=== PATIENT | male | born 1995 | race African-American/Black ===

== ENCOUNTER → 2018-08-23 | Outpatient (CLI) | payer BC, OTHER ==
[~2018-08-23] VITALS: Ht 180.3 cm; Wt 99.8 kg
[~2018-08-23] MED LIST: CLARITHROMYCIN500 MG PO; CYCLOBENZAPRINE5 MG PO; NOHOMEMEDICATIONS; NORCO 5-325 TA1 EACH PO; TRAMADOL 50 MG50 MG PO
[2018-08-23 10:29] VITALS: BP 119/60
[2018-08-23 10:31] LABS: HEMATOCRIT 45.8 % (42.0-52.0); HEMOGLOBIN 15.5 gm/dL (14.0-18.0); MCH 28.9 pg (26.0-34.0); MCHC 33.8 g/dL (28.0-37.0); MCV 85.4 fL (80.0-100.0); RBC 5.37 mil/uL (4.50-6.00); RDW 13.2 % (10.5-14.5); WBC 6.2 thou/uL (4.0-11.0)
[2018-08-23 10:39] LABS: CALCIUM 9.6 mg/dL (8.5-10.1); CREATININE 1.2 mg/dL (0.7-1.3); POTASSIUM 3.9 mmol/L (3.5-5.1)
[2018-08-23 10:44] LABS: APTT 29.4 Seconds (24.5-32.8); PROTIME 10.8 Seconds (9.3-11.4)
[2018-08-23 12:20] LABS: CSF CLARITY CLEAR; CSF COLOR COLORLESS; CSF RBC 1 /mm3; CSF WBC 2 /mm3 (0-10); VOLUME 13.5 ml
[2018-08-23 12:31] LABS: CSF GLUCOSE 67 mg/dL (40-70); CSF PROTEIN 33 mg/dL (15-45)
--- NOTE | 2018-08-23 12:44 | NUR ---
PT. RECOVERED POST LP WITH NO DIFF. DISCHARGE INSTRUCTIONS GIVEN TO PT. AND SISTER. BOTH VOICE UNDERSTANDING. UP WITH STEADY GAIT TO . SL DC'D. SITE NO REDNESS NO EDEMA. HOME WITH SISTER. VSS.
--- NOTE | 2018-08-23 12:54 | NUR ---
ADDENDUM: PT STATED HE NEEDED TO BE DISCHARGED AT THIS TIME HIS RIDE HOME IS HIS SISTER WHO HAS TO WORK. REVIEWED NEED FOR BEDREST. VSS.
[2018-08-25 12:07] LABS: CSF VDRL Non Reactive (Non Rea:<1:1)
== END | disposition home or self-care (01) ==
LOC: RAD 09:48
PROVIDERS: Specialist
DX: G44.209 Tension-type headache, unspecified, not intractable (principal); M54.5 Low back pain; J45.909 Unspecified asthma, uncomplicated; K21.9 Gastro-esophageal reflux disease without esophagitis; Z79.891 Long term (current) use of opiate analgesic; Z20.2 Contact with and (suspected) exposure to infections with a predominantly sexual mode of transmission; Z98.890 Other specified postprocedural states; Z79.899 Other long term (current) drug therapy; Z88.8 Allergy status to other drugs, medicaments and biological substances

== ENCOUNTER 2018-08-26 14:50 | Emergency (ER) | payer BC, OTHER ==
[~2018-08-26] VITALS: Ht 180.3 cm; Wt 97.5 kg
[~2018-08-26 14:50] MED LIST changes: -NORCO 5-325 TA1 EACH PO
[2018-08-26 16:50] LABS: ABSOLUTE NEUTROPHILS 8.6 thou/uL (1.4-8.2); BASOPHILS 0.2 % (0.0-2.0); EOSINOPHILS 2.7 % (0.0-3.0); HEMATOCRIT 47.9 % (42.0-52.0); HEMOGLOBIN 16.1 gm/dL (14.0-18.0); LYMPHOCYTES 19.6 % (24.0-44.0); MCH 28.2 pg (26.0-34.0); MCHC 33.5 g/dL (28.0-37.0); MCV 84.3 fL (80.0-100.0); MONOCYTES 6.4 % (1.0-8.0); PLATELET COUNT 257 thou/uL (150-400); POLYS 71.1 % (36.0-66.0); RBC 5.69 mil/uL (4.50-6.00); RDW 13.1 % (10.5-14.5); WBC 12.2 thou/uL (4.0-11.0)
[2018-08-26 16:57] LABS: CALCIUM 10.2 mg/dL (8.5-10.1); CREATININE 1.3 mg/dL (0.7-1.3); POTASSIUM 3.6 mmol/L (3.5-5.1)
[2018-08-26] MEDS ORDERED: NORCO 5-325 TA1 EACH PO (17:03)
[2018-08-26 17:20] VITALS: BP 109/52
== END 2018-08-26 17:34 | disposition home or self-care (01) ==
LOC: ER 14:50
PROVIDERS: Nurse Practitioner Family
DX: G97.1 Other reaction to spinal and lumbar puncture (principal); J45.909 Unspecified asthma, uncomplicated; Z88.1 Allergy status to other antibiotic agents

== ENCOUNTER → 2018-11-08 | Outpatient (CLI) | payer BC, OTHER ==
[~2018-11-08] MED LIST changes: +NORCO 5-325 TA1 EACH PO
[2018-11-08 09:18] VITALS: BP 116/62
[2018-11-08 12:50] VITALS: BP 111/75
[2018-11-08 13:20] VITALS: BP 111/75
[2018-11-08 13:30] VITALS: BP 115/72
--- NOTE | 2018-11-08 13:36 | NUR ---
PT HERE WITH LATENT SYPHILI, PENICILLIN ALLERGY AND PENICILLIN DESENSITIZATION PROTOCOL AND 1ST FULL DOSE OF IM PCN TO TREAT HIS SYPHILIS. CLARIFIED WITH DR. RANGEL THAT NO PREMEDS NEEDED. EDUCATION GIVEN REGARDING PROCESS TODAY WITH RATIONALE AND WHAT TO EXPECT, NEED TO REPEAT IM PCN AGAIN IN ONE AND TWO WEEKS ACCORDING TO DR. RANGEL. HE STATES HIS NURSE, EVARISTO, IS WORKING ON GETTING THAT ARRANGED. PT CALLED AND LEFT MESSAGE ON EVARISTO'S OFFICE LINE DID THIS NURSE TO BE SURE THAT THESE F/U INJECTIONS GET ORGANIZED. EMPHASIZED TO PT THAT NO BREAK IN TREATMENT CAN BE ALLOWED OR THE DESENSITIZATION WILL NEED TO BE REPEATED. PT VERBALIZED UNDERSTANDING. PT DID BRING EPI PEN STARTER BOX WTIH HIM WHICH INCLUDES TWO EPI PENS AND ONE JOSE MIGUEL. REVIEWED USE OF PENS AND PT PROPERLY RETURNED DEMO OF EPI PEN USE TO THIS NURSE. TAUGHT PT THE S/S OF AN ALLERGIC REACTION AND THE IMPORTANCE OF USING THE EPI PEN NEEDED AND REPORTING TO THE ED IN THE EVENT OF A REACTION. PT INSTRUCTED TO TAKE BENADRYL PER PACKAGE INSTRUCTIONS IF ONLY A MILD RASH APPEARS BUT TO CALL DR. RANGEL IF THIS OCCURS. PT TOLERATED ENTIRE DESENSITIZATION PROTOCOL WITHOUT INCIDENT, NO S/S REACTION. VSS. LUNGS REMAINED CLEAR. SEE PAPER DOCUMENTATION OF TIMING EACH DOSE WAS GIVEN. 30 MINUTE WAIT PERIOD AFTER ORAL PROTOCOL COMPLETED THEN IM DOSING OF PCN GIVEN, ONE INJECTION EACH BUTTOCK. WAITED ANOTHER 30 MINUTES PRIOR TO DISMISSAL. NO S/S REACTION. PT HAS EPI PENS IN HIS POSSESSION AND INSTRUCTED TO CARRY WITH HIM AT ALL TIMES FOR NOW. DISMISSED IN STABLE CONDITION.
--- NOTE | 2018-11-12 13:11 | NUR ---
RECEIVED A CALL FROM DR. ISABEL RANGEL'S OFFICE TODAY TO CONFIRM THAT THIS PT IS SET UP FOR HIS NEXT TWO BICILLIN INJECTIONS WITH THE [facility]
== END ==
LOC: OPONC 06:52
DX: Z88.0 Allergy status to penicillin (principal); A53.0 Latent syphilis, unspecified as early or late
CPT/HCPCS: 95112

== ENCOUNTER 2021-10-14 09:53 | Emergency (ER) | payer OTHER ==
[~2021-10-14] VITALS: Ht 177.8 cm; Wt 102.1 kg
[2021-10-14 09:59] VITALS: BP 122/74
[2021-10-14] MEDS ORDERED: ERYTHROMYCIN250 M1 PO (12:07)
== END 2021-10-14 13:35 | disposition home or self-care (01) ==
LOC: ER 09:53
DX: D04.5 Carcinoma in situ of skin of trunk (principal); J45.909 Unspecified asthma, uncomplicated; B20 Human immunodeficiency virus [HIV] disease; Z88.0 Allergy status to penicillin